=== PATIENT | male | born 1960 | race Caucasian/White ===

== ENCOUNTER 2018-08-25 00:32 | Emergency (ER) | payer OTHER | END 2018-08-25 09:30 | disposition home or self-care (01) | LOC: E/R 00:32 | DX: S00.12XA Contusion of left eyelid and periocular area, initial encounter (principal); S09.8XXA Other specified injuries of head, initial encounter; F10.920 Alcohol use, unspecified with intoxication, uncomplicated; W18.39XA Other fall on same level, initial encounter; Y92.9 Unspecified place or not applicable | CPT/HCPCS: 70450; 99284-25 ==

== ENCOUNTER 2018-08-26 05:15 | Emergency (ER) | payer OTHER ==
[2018-08-26] MEDS: ACETAMINOPHEN 500 MG TAB PO (06:36)
== END 2018-08-26 13:00 | disposition home or self-care (01) ==
LOC: FTE 05:15 → E/R 13:00
DX: S09.90XA Unspecified injury of head, initial encounter (principal); S00.12XA Contusion of left eyelid and periocular area, initial encounter; J32.9 Chronic sinusitis, unspecified; S02.2XXK Fracture of nasal bones, subsequent encounter for fracture with nonunion; Y04.8XXA Assault by other bodily force, initial encounter; Z86.011 Personal history of benign neoplasm of the brain
CPT/HCPCS: 70486; 99284-25